=== PATIENT | male | born 1985 | race Caucasian/White ===

== ENCOUNTER 2016-04-08 09:52 | Emergency (ER) | payer OTHER ==
[~2016-04-08] VITALS: Ht 190.5 cm; Wt 115.6 kg
[~2016-04-08 09:52] MED LIST: CETI10TA10 PO
[2016-04-08 09:54] VITALS: TEMP 37.1; Ht 190.5 cm; Wt 115.6 kg
[2016-04-08 10:00] VITALS: O2SAT 98
[2016-04-08] MEDS ORDERED: ASPIRIN 324 MG CHEW PO STA (10:40)
[2016-04-08] MEDS ORDERED: NITROGLYCERIN 0.4 MG SL PER TAB CHARGE SL PRN (10:45)
--- NOTE | 2016-04-08 10:45 | EMERGENCY ROOM VISIT NOTE ---
History First contact with patient: 09:57 Chief Complaint: SHORTNESS OF BREATH Stated Complaint: CHEST PAIN/SOB Nursing Triage Summary: sob, chest heaviness on and off, pt states he occasionally has prod cough, hx allergies. Patient reports chest discomfort starting Tuesday evening, pain went away. Presents today to the ED with chest heaviness and SOB. History of Present Illness The patient is a 30 year old male who presents to the Emergency Room with complaints of chest pain and shortness of breath. The patient states that 2 nights ago he developed heaviness in his chest and felt short of breath. He states he feels as though he cannot get enough air. The patient states that it seemed a little better on Tuesday although he felt slightly lightheaded and dizzy. The patient states that he has had persistent heaviness in his chest that he states is in the center of his chest. He states that it radiated to his left shoulder last night. He rates his discomfort a 2/10. He denies any recent illness, earache, sore throat, cough or fever. He denies any abdominal pain, nausea or vomiting. He denies any extremity pain, weakness, numbness or tingling. The patient does travel distances to [employer]. He was in [place] on Tuesday. The patient does have a family history of his father having Ivmct-Qmlctuqoo-Wkkwx syndrome, an aunt with scleroderma and his mother has Ebstein anomaly. He has never had a stress test or echocardiogram. He has never seen a optical assistant. Review of Systems A 10 system review of systems was completed with positives and pertinent negatives listed in the HPI. Past Medical/Surgical History Medical Problems: (1) Calculus Of Kidney (2) Calculus Of Ureter (3) Personal History Of Urinary Calculi Social History Smoking Status: Never Smoker Drug Use: none Marital Status: Housing Status: lives with family Occupation Status: employed Current/Historical Medications Scheduled Cetirizine Hcl (Zyrtec), 10 MG PO QAM Scheduled PRN Lorazepam (Ativan), 1 TAB PO Q6H PRN for Anxiety Allergies Coded Allergies: No Known Allergies (Unverified , 04/08/16) Physical Exam Vital Signs Date Time Temp Pulse Resp B/P Pulse Ox O2 Delivery O2 Flow Rate FiO2 04/08/16 17:20 74 20 128/84 97 04/08/16 16:11 100 18 129/70 97 Room Air 04/08/16 15:05 75 18 145/87 99 Room Air 04/08/16 13:50 67 20 125/77 97 Room Air 04/08/16 12:22 65 18 138/94 98 Room Air 04/08/16 10:49 71 14 127/83 98 Room Air 04/08/16 10:48 76 04/08/16 10:04 98 Room Air 04/08/16 10:00 98 Room Air 04/08/16 09:54 37.1 94 18 146/108 98 Room Air Physical Exam VITALS: Vitals are noted on the nurse's note and reviewed by myself. Vital signs stable. The patient is afebrile. He is not tachycardic, tachypneic or hypoxic. GENERAL: This is a 30-year-old male, in no acute distress, nondiaphoretic, well- developed well-nourished. SKIN: The skin was without rashes, erythema, edema, or bruising. There is no tenting of the skin. Capillary reflex less than 2 seconds. HEAD: Normocephalic atraumatic. EARS: The external ears are normal in appearance. EYES: Pupils equal round and reactive to light and accommodation. Conjunctivae without injection, sclerae without icterus. Extraocular movements intact. NOSE: Patent, turbinates without inflammation or discharge. MOUTH: Mucous membranes moist. Tonsils are not enlarged. Pharynx without erythema or exudate. Uvula midline. Airway patent. Tongue does not deviate. NECK: Supple without nuchal rigidity. No JVD. HEART: Regular rate and rhythm without murmurs gallops or rubs. LUNGS: Clear to auscultation bilaterally without wheezes, rales or rhonchi. No retractions or accessory muscle use. ABDOMEN: Positive bowel sounds x 4. Soft, nontender, without masses or organomegaly. MUSCULOSKELETAL: No muscle atrophy, erythema, or edema noted. Full range of motion in all extremities. Normal gait. Strength 5/5 throughout. NEURO: Patient was alert and oriented to person place and time. No focal neurological deficits. Medical Decision & Procedures ER Provider Diagnostic Interpretation: [~ rep ct add3]] CHEST ONE VIEW PORTABLE CLINICAL HISTORY: Chest pain and shortness of breath. COMPARISON STUDY: Chest radiograph February 24, 2015. FINDINGS: Lung volumes are normal. There is no pneumothorax or pleural effusion. There is no consolidation or evidence of pulmonary edema. Cardiac size is normal. Mediastinal contours are normal. IMPRESSION: No acute cardiopulmonary findings. Laboratory Results 04/08/16 10:34 Red Blood Count 5.02, Mean Corpuscular Volume 84.5, Mean Corpuscular Hemoglobin 29.5, Mean Corpuscular Hemoglobin Concent 34.9, Mean Platelet Volume 9.9, Neutrophils (%) (Auto) 59.4, Lymphocytes (%) (Auto) 31.3, Monocytes (%) (Auto) 8.0, Eosinophils (%) (Auto) 0.6, Basophils (%) (Auto) 0.3, Neutrophils # (Auto) 4.32, Lymphocytes # (Auto) 2.27, Monocytes # (Auto) 0.58, Eosinophils # (Auto) 0.04, Basophils # (Auto) 0.02 04/08/16 10:34 Test 04/08/16 10:34 04/08/16 11:49 04/08/16 13:09 White Blood Count 7.26 K/uL (4.8-10.8) Red Blood Count 5.02 M/uL (4.7-6.1) Hemoglobin 14.8 g/dL (14.0-18.0) Hematocrit 42.4 % (42-52) Mean Corpuscular Volume 84.5 fL (80-100) Mean Corpuscular Hemoglobin 29.5 pg (25-34) Mean Corpuscular Hemoglobin Concent 34.9 g/dl (32-36) Platelet Count 341 K/uL (130-400) Mean Platelet Volume 9.9 fL (7.4-10.4) Neutrophils (%) (Auto) 59.4 % Lymphocytes (%) (Auto) 31.3 % Monocytes (%) (Auto) 8.0 % Eosinophils (%) (Auto) 0.6 % Basophils (%) (Auto) 0.3 % Neutrophils # (Auto) 4.32 K/uL (1.4-6.5) Lymphocytes # (Auto) 2.27 K/uL (1.2-3.4) Monocytes # (Auto) 0.58 K/uL (0.11-0.59) Eosinophils # (Auto) 0.04 K/uL (0-0.5) Basophils # (Auto) 0.02 K/uL (0-0.2) RDW Standard Deviation 38.9 fL (36.4-46.3) RDW Coefficient of Variation 12.6 % (11.5-14.5) Immature Granulocyte % (Auto) 0.4 % Immature Granulocyte # (Auto) 0.03 K/uL (0.00-0.02) Prothrombin Time 11.0 SECONDS (9.0-12.0) Prothromb Time International Ratio 1.0 (0.9-1.1) Activated Partial Thromboplast Time 24.5 SECONDS (21.0-31.0) Partial Thromboplastin Ratio 0.9 D-Dimer < 190 ug/L FEU (0-500) Anion Gap 9.0 mmol/L (3-11) Est Creatinine Clear Calc Drug Dose 132.2 ml/min Estimated GFR () 102.4 Estimated GFR (Non- 88.4 BUN/Creatinine Ratio 16.2 (10-20) Calcium Level 9.3 mg/dl (8.5-10.1) Total Bilirubin 1.0 mg/dl (0.2-1) Aspartate Amino Transf (AST/SGOT) 26 U/L (15-37) Alanine Aminotransferase (ALT/SGPT) 70 U/L (12-78) Alkaline Phosphatase 79 U/L (45-117) Creatine Kinase MB 1.2 ng/ml (0.5-3.6) Creatine Kinase MB Ratio (0-3.0) Troponin I < 0.015 ng/ml (0-0.045) Total Protein 8.0 gm/dl (6.4-8.2) Albumin 4.2 gm/dl (3.4-5.0) Globulin 3.8 gm/dl (2.5-4.0) Albumin/Globulin Ratio 1.1 (0.9-2) Thyroid Stimulating Hormone (TSH) 1.260 uIu/ml (0.300-4.500) Bedside Troponin I 0.000 ng/ml (0-0.045) Urine Color YELLOW Urine Appearance CLEAR (CLEAR) Urine pH 8.0 (4.5-7.5) Urine Specific [place] 1.016 (1.000-1.030) Urine Protein NEG (NEG) Urine Glucose (UA) NEG (NEG) Urine Ketones NEG (NEG) Urine Occult Blood NEG (NEG) Urine Nitrite NEG (NEG) Urine Bilirubin NEG (NEG) Urine Urobilinogen NEG (NEG) Urine Leukocyte Esterase NEG (NEG) Medications Administered Medications (Trade) Dose Ordered Sig/[place] Route Start Time Stop Time Status Last Admin Dose Admin Aspirin (Aspirin Chew) 324 mg NOW STAT PO 04/08/16 10:40 04/08/16 10:42 DC 04/08/16 10:48 324 MG Nitroglycerin (Nitrostat Tab) 0.4 mg PRN PRN SL 04/08/16 10:45 04/08/16 17:41 DC 04/08/16 10:49 0.4 MG Procedure The patient was monitored on a bus monitor. They maintained a normal sinus rhythm without ectopy. ECG Indication: chest pain Rate (beats per minute): 71 Rhythm: normal sinus Findings: no acute ischemic change ED Course The patient was seen and examined. Previous visits were reviewed. The patient does not have a fever or leukocytosis. He does not have any significant electrolyte abnormality. Initial and 90 minute troponins were negative. TSH was within normal limits. D-dimer was not elevated. Urinalysis was negative. Chest x-ray does not reveal any acute abnormality EKG does not reveal any acute arrhythmia or ischemia The patient was given aspirin and nitroglycerin. He had no improvement in his discomfort. I discussed the case with Dr. Sandoval. A stress echo was ordered and read as normal per Dr. Godwin. The patient has been experiencing chest pressure and difficulty breathing. It has worsened over the last several days. The patient underwent the above extensive evaluation with no significant abnormality found. This may be related to underlying anxiety. 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 The patient states he was hesitant to admit this could be anxiety but is willing to consider it at this time. He will be given a small prescription for Ativan. He should follow-up with his family doctor for further evaluation, management and possible SSRI. He should return to the emergency Department with any worsening symptoms. The case was discussed with Dr. Schroeder who agrees with the assessment and treatment plan Medical Decision DIFFERENTIAL DIAGNOSIS: Aortic dissection, myocarditis, pericarditis, cervical disc disease, costochondritis, herpes zoster, rib fracture, pleuritis, pneumonia , pulmonary embolus, tension pneumothorax, anxiety disorder, somatoform disorder , choledocholithiasis, status, esophagitis, esophageal spasm, esophageal reflux , esophageal rupture, pancreatitis, peptic ulcer disease, cardiac ischemia, ST elevation NH, acute coronary syndrome, arrhythmia, coronary artery vasospasm. vavular heart disease, coronary artery disease, among others. Impression Primary Impression: Precordial chest pain Additional Impression: Anxiety Departure Information Dispostion Home / Self-Care Condition GOOD Prescriptions Lorazepam (ATIVAN) 1 Mg Tab 1 TAB PO Q6H Y for Anxiety, #12 TAB Prov: Lanette Nelson PA-C 04/08/16 Referrals RV. Dobbins MD (PCP) Patient Instructions Chest Pain - [facility], Disorder Generalized Anxiety, [facility] Additional Instructions Ativan as prescribed as needed for anxiety. The Ativan will make you sleepy and do not drive while taking it. Contact your family doctor to schedule a follow-up appointment to discuss further evaluation and management. Return with any worsening symptoms. Problem Qualifiers
[2016-04-08 10:52] LABS: BASO % 0.3 %; BASO ABS # 0.02 K/uL (0-0.2); COMPLETE YES; EOS % 0.6 %; HEMATOCRIT 42.4 % (42-52); IG% 0.4 %; LYMPH % 31.3 %; LYMPH ABS # 2.27 K/uL (1.2-3.4); MEAN CELL VOLUME 84.5 fL (80-100); MEAN CORPUSCULAR HEMOGLOBIN 29.5 pg (25-34); MEAN CORPUSCULAR HGB CONC 34.9 g/dl (32-36); MEAN PLATELET VOLUME 9.9 fL (7.4-10.4); NEUT % 59.4 %; PLATELET COUNT 341 K/uL (130-400); RED BLOOD COUNT 5.02 M/uL (4.7-6.1); WHITE BLOOD COUNT 7.26 K/uL (4.8-10.8)
[2016-04-08 10:59] LABS: ALT/SGPT 70 U/L (12-78); AST/SGOT 26 U/L (15-37); BLOOD UREA NITROGEN 18 mg/dl (7-18); BUN/CREATININE RATIO 16.2 (10-20); CALCIUM 9.3 mg/dl (8.5-10.1); CARBON DIOXIDE 25 mmol/L (21-32); CHLORIDE 106 mmol/L (98-107); GLUCOSE 113 mg/dl (70-99); SODIUM 140 mmol/L (136-145)
[2016-04-08 11:10] LABS: ALB/GLOB RATIO 1.1 (0.9-2); ALKALINE PHOSPHATASE 79 U/L (45-117)
[2016-04-08 11:12] LABS: PARTIAL THROMBOPLASTIN RATIO 0.9
--- NOTE | 2016-04-08 11:25 | DIAGNOSTIC IMAGING REPORT ---
CHEST ONE VIEW PORTABLE CLINICAL HISTORY: Chest pain and shortness of breath. COMPARISON STUDY: Chest radiograph February 24, 2015. FINDINGS: Lung volumes are normal. There is no pneumothorax or pleural effusion. There is no consolidation or evidence of pulmonary edema. Cardiac size is normal. Mediastinal contours are normal. IMPRESSION: No acute cardiopulmonary findings. Electronically signed by: Jose R Ortiz M.D. 04/08/2016 11:23 AM Dictated Date/Time: 04/08/2016 11:22 AM
[2016-04-08 13:25] LABS: URINE APPEARANCE CLEAR (CLEAR); URINE BILIRUBIN NEG (NEG); URINE COLOR YELLOW; URINE NITRITE NEG (NEG); URINE SPECIFIC GRAVITY 1.016 (1.000-1.030); UROBILINOGEN NEG (NEG); ZZUR CULT IF INDIC CLEAN CATCH NO
[2016-04-08 14:15] LABS: MANUAL MICROSCOPIC REQUIRED? NO; REVIEW REQ? NO
[2016-04-08] MEDS ORDERED: ATV/1 PO ×2 (17:09→17:11)
[2016-04-08 17:20] VITALS: BP 128/84; PULSE 74; O2SAT 97
--- NOTE | 2016-04-08 18:06 | EXERCISE STRESS ECHO ---
*NOTICE TO RECEIVING [employer] This information is strictly Confidential and protected under [place] law. [place] law prohibits you from making any further disclosure of this information unless further disclosure is expressly permitted by the written consent of the person to whom it pertains or is authorized by law. A general authorization for the release of medical or other information is not sufficient for this purpose. Hospital accepts no responsibility if the information is made available to any other person, INCLUDING THE PATIENT. Interpretation Summary * Name: NATALY KHAN Study Date: 04/08/2016 03:03 PM BP: 149/88 mmHg * Patient Location: .ED HR: 61 * : 1985 (M/d/yyyy) Gender: Male Height: 75 in * Age: 30 yrs Ethnicity: [place] Weight: 254 lb * Ordering Physician: Lanette Nelson * Referring Physician: KATHY Dobbins. * Performed By: [facility] * * Reason For Study: CHEST PAIN * BSA: 2.4 m2 * Hypertensive at rest. * Hypertensive systolic blood pressure response to exercise. * No exercise-induced arrhythmias. * Resting echocardiogram with mild concentric left ventricular hypertrophy, normal biventricular systolic function, normal left ventricular wall motion, mild left atrial dilatation. * This was a stress echocardiogram only. No Doppler exam of the valves was performed. * This was a normal stress echocardiogram. * The stress ECG response was normal * The stress echocardiogram is negative for inducible ischemia. Procedure Details * ECHOEX, CPT #91300 Left Ventricle * The left ventricle is normal in size. * There is mild concentric left ventricular hypertrophy. * Ejection Fraction = 65-70%. * Left ventricular systolic function is normal. * The left ventricular ejection fraction increases normally with stress. The left ventricular end-systolic cavity size reduces post-stress (normal response). The left ventricular wall motion with stress is normal. * Resting wall motion: Normal. Stress wall motion: Appropriate increase in Left ventricular systolic function and decrease in cavity size. No stress induced segmental wall motion abnormalities. Right Ventricle * The right ventricle is normal in size and function. Atria * The left atrium is mildly dilated. * Right atrial size is normal. Mitral Valve * The mitral valve is normal. Tricuspid Valve * The tricuspid valve is not well visualized. Aortic Valve * The aortic valve is not well visualized. Pulmonic Valve * The pulmonic valve is not well visualized. Pericardium * There is no pericardial effusion. Stress Parameters * Normal baseline electrocardiogram. * Stress ECG: No ST changes. No arrhythmias. * Rest heart rate was '92' BPM. * Rest blood pressure was '149/88' * Maximum heart rate achieved was 179 bpm. * Maximum heart rate was 95 % of maximum age-predicted heart rate. * Maximum blood pressure was '209/60' * Total exercise time was '9:04 min' * Maximum exercise MET level achieved was '10.20' METS * Maximum treadmill speed was '4.2' miles per hour. * Maximum treadmill elevation was '16'% grade. * Exercise was stopped due to fatigue. * The patient exhibited a hypertensive response with stress. * No complaints of chest pain during or following exercise. MMode 2D Measurements and Calculations IVSd 1.2 cm IVSs 1.8 cm LVIDd 4.1 cm LVIDs 2.3 cm LVPWd 1.2 cm LVPWs 1.3 cm IVS/LVPW 1.0 FS 42.7 % EDV(Teich) 74.0 ml ESV(Teich) 19.1 ml EF(Teich) 74.2 % EDV(cubed) 68.6 ml ESV(cubed) 12.9 ml EF(cubed) 81.2 % % IVS thick 44.8 % % LVPW thick 12.9 % LV mass(C)d 172.2 grams LV mass(C)dI 70.9 grams/m\S\2 LV mass(C)s 124.9 grams LV mass(C)sI 51.4 grams/m\S\2 SV(Teich) 54.9 ml SI(Teich) 22.6 ml/m\S\2 SV(cubed) 55.7 ml SI(cubed) 22.9 ml/m\S\2 Ao root diam 3.7 cm Ao root area 10.6 cm\S\2 LA dimension 4.2 cm LA/Ao 1.1 LVOT diam 2.0 cm LVOT area 3.1 cm\S\2
== END 2016-04-08 17:24 | disposition home or self-care (01) ==
LOC: C.EDB 09:53
DX: R07.2 Precordial pain (principal); F41.9 Anxiety disorder, unspecified

== ENCOUNTER 2016-04-14 10:35 | Emergency (ER) | payer OTHER ==
[~2016-04-14] VITALS: Ht 188 cm; Wt 108.0 kg
[~2016-04-14 10:35] MED LIST changes: +ATV/1 PO
[2016-04-14 10:44] VITALS: TEMP 36.8; Ht 188 cm; Wt 108.0 kg
[2016-04-14] MEDS ORDERED: SODIUM CHLORIDE 0.9% 1000ML 500 ML IV ONE (10:57)
[2016-04-14] MEDS ORDERED: ONDANSETRON INJ 2 MG/ML 2 ML VIAL IV STA (10:57)
[2016-04-14] MEDS ORDERED: ONDANSETRON INJ 2 MG/ML 2 ML VIAL ONE (10:58)
[2016-04-14] MEDS ORDERED: MoRPHine SULFATE 10 MG/ML CARP/VIAL ONE (10:58)
[2016-04-14] MEDS ORDERED: MoRPHine SULFATE 10 MG/ML CARP/VIAL IV PRN (11:00)
[2016-04-14 11:12] LABS: HEMATOCRIT 41.5 % (42-52); MEAN CELL VOLUME 84.7 fL (80-100); MEAN CORPUSCULAR HEMOGLOBIN 29.8 pg (25-34); MEAN CORPUSCULAR HGB CONC 35.2 g/dl (32-36); PLATELET COUNT 377 K/uL (130-400); WHITE BLOOD COUNT 9.37 K/uL (4.8-10.8)
[2016-04-14] MEDS ORDERED: MoRPHine SULFATE 10 MG/ML CARP/VIAL IV STA (11:17)
[2016-04-14 11:18] LABS: BUN/CREATININE RATIO 16.1 (10-20); CALCIUM 9.7 mg/dl (8.5-10.1); CREATININE 1.2 mg/dl (0.60-1.40); POTASSIUM 4.2 mmol/L (3.5-5.1)
[2016-04-14 11:25] LABS: URINE APPEARANCE CLOUDY (CLEAR); URINE BILIRUBIN NEG (NEG); URINE COLOR DK YELLOW; URINE NITRITE NEG (NEG); UROBILINOGEN NEG (NEG); ZZUR CULT IF INDIC CLEAN CATCH NO
[2016-04-14 11:27] LABS: MANUAL MICROSCOPIC REQUIRED? NO; REVIEW REQ? NO
--- NOTE | 2016-04-14 11:47 | DIAGNOSTIC IMAGING REPORT ---
CT OF THE ABDOMEN AND PELVIS WITHOUT CONTRAST, STONE PROTOCOL CLINICAL HISTORY: Left flank pain. COMPARISON STUDY: CT of the abdomen and pelvis February 19, 2015 and KUB September 08, 2015. TECHNIQUE: Helical axial images of the abdomen and pelvis were obtained without IV or oral contrast according to renal stone protocol. FINDINGS: There is mild left hydroureteronephrosis due to a 2 mm distal left ureteral calculus. There are several punctate left renal calculi. Evaluation of the remainder of the abdomen and pelvis is suboptimal on this unenhanced exam. The liver, spleen, adrenal glands and pancreas are normal. 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 There is no right hydronephrosis. The caliber of small and large bowel is normal. No lymphadenopathy is present. Skeletal structures are unremarkable. IMPRESSION: 1. 2 mm distal left ureteral calculus which results in mild left hydroureteronephrosis. 2. Punctate left sided nephrolithiasis. Electronically signed by: Jose R Ortiz M.D. 04/14/2016 11:45 AM Dictated Date/Time: 04/14/2016 11:38 AM
[2016-04-14] MEDS ORDERED: HYDROmorphone INJ 1 MG/ML SYR IV STA (11:56)
[2016-04-14] MEDS ORDERED: KETOROLAC TROMETHAMINE 30 MG/ML VIAL IV STA (11:56)
[2016-04-14 13:11] VITALS: BP 119/68; PULSE 75; O2SAT 99
--- NOTE | 2016-04-14 15:26 | EMERGENCY ROOM VISIT NOTE ---
ED Visit Note First contact with patient: 11:03 Chief Complaint: Left flank pain. History of Present Illness: Mr. Jaramillo is a 30 year-old white male complaining of left flank pain. Historically patient reports history of multiple kidney stones and multiple lithotripsy procedures to pass his stoness. He reports an acute onset of severe left flank pain quadrant abdominal pain that started approximately 5 hours ago. Since that time the pain has been constant but gradually increasing in intensity. The pain is currently described as sharp and cramping. He rates his discomfort 10/10. The pain is radiating around the abdomen into the left lower quadrant area. He has not identified any aggravating or alleviating factors related to the pain. He reports taking 5 mg of OxyIR for pain and has not had any relief. Associated with the pain there has been nauseated but has not vomited and has been feeling hot and has been diaphoretic.. Patient denies skin eruptions, skin color changes, upper respiratory tract symptoms, shortness of breath, chest pain, diarrhea, constipation, rectal bleeding, black/tarry stools, urinary symptoms, hematuria. Review of Systems: As noted above in history of present illness. All body systems were reviewed and found to be negative as noted above. Past Medical History: As previously noted. Current Medications:OxyIR, Ativan and Zyrtec. Allergies to Medications: Patient denies. Social History: Patient is currently employed; he feels safe in his home environment; he denies tobacco use and admits to social alcohol use. Physical Examination: Vital Signs: Date Time Temp Pulse Resp B/P Pulse Ox O2 Delivery O2 Flow Rate FiO2 04/14/16 13:11 75 20 119/68 99 Room Air 04/14/16 11:53 70 22 151/80 100 Room Air 04/14/16 11:15 82 04/14/16 10:44 36.8 100 20 162/99 97 GENERAL: 30-year-old male in moderate to severe distress due to pain, nontoxic- appearing, afebrile and hemodynamically stable. NEUROLOGICAL: Awake, alert and oriented to person, place and time. Answering questions appropriately and following commands. Normal gait. Good hand eye coordination. SKIN: Warm, moist and pink. No soft tissue eruptions or trauma noted. HEENT: Atraumatic and normocephalic. PERRLA. Sclera white and conjunctiva pink. Oral cavity moist and pink. Pharynx is nonerythematous or edematous. Speech normal. No lymphadenopathy. Trachea midline. No jugular venous distention. BACK: No tenderness over the bony spine. No CVA tenderness. THORAX: Lungs sounds are clear to auscultation and equal bilaterally with symmetrical chest wall. No wheezing, rales or rhonchi. No crepitus, tenderness , subcutaneous air or deformities noted. HEART: Regular rate and rhythm. No gallops, rubs or murmurs are appreciated. ABDOMEN: Flat, soft and nontender. Positive bowel sounds in all quadrants. No guarding, rigidity or organomegaly. EXTREMITIES: Moves all extremities well on command and with purpose. All distal neurovascular statuses are intact and equal bilaterally. ED Course: Patient is assessed as noted above. Laboratory Testing: Test 04/14/16 00:00 04/14/16 10:45 Range/Units Urine Color DK YELLOW Urine Appearance CLOUDY CLEAR Urine pH 6.0 4.5-7.5 Urine Specific [place] 1.030 1.000-1.030 Urine Protein TRACE NEG Urine Glucose (UA) NEG NEG Urine Ketones TRACE NEG Urine Occult Blood 3+ NEG Urine Nitrite NEG NEG Urine Bilirubin NEG NEG Urine Urobilinogen NEG NEG Urine Leukocyte Esterase SMALL NEG Urine WBC (Auto) 1-5 0-5 /hpf Urine RBC (Auto) >30 0-4 /hpf Urine Hyaline Casts (Auto) 5-10 0-5 /lpf Urine Epithelial Cells (Auto) 10-20 0-5 /lpf Urine Bacteria (Auto) NEG NEG White Blood Count 9.37 4.8-10.8 K/uL Red Blood Count 4.90 4.7-6.1 M/uL Hemoglobin 14.6 14.0-18.0 g/dL Hematocrit 41.5 42-52 % Mean Corpuscular Volume 84.7 80-100 fL Mean Corpuscular Hemoglobin 29.8 25-34 pg Mean Corpuscular Hemoglobin Concent 35.2 32-36 g/dl RDW Standard Deviation 39.2 36.4-46.3 fL RDW Coefficient of Variation 12.7 11.5-14.5 % Platelet Count 377 130-400 K/uL Mean Platelet Volume 10.0 7.4-10.4 fL Sodium Level 142 136-145 mmol/L Potassium Level 4.2 3.5-5.1 mmol/L Chloride Level 109 98-107 mmol/L Carbon Dioxide Level 23 21-32 mmol/L Anion Gap 10.0 3-11 mmol/L Blood Urea Nitrogen 19 7-18 mg/dl Creatinine 1.20 0.60-1.40 mg/dl Est Creatinine Clear Calc Drug Dose 115.7 ml/min Estimated GFR () 92.2 Estimated GFR (Non- 79.5 BUN/Creatinine Ratio 16.1 10-20 Random Glucose 126 70-99 mg/dl Calcium Level 9.7 8.5-10.1 mg/dl Lipase 140 73-393 U/L Noncontrast Abdominal/Pelvic CT: Was read by myself and the radiologist showing left hydroureteronephrosis with a 2 mm distal left ureteral calculus. Radiologist also notes several small punctate left uterine calculi. Rest of the CT was unremarkable. Patient was hydrated with normal saline and he received a total of 12 mg of morphine IV, 1 mg of the Dilaudid IV and 30 mg of Toradol IV for pain. Additionally he received 4 mg of Zofran IV for nausea. Patient was reassessed multiple times during his stay in the emergency department. Patient's case was reviewed with Dr. Long; we agreed on diagnostic approach, treatment, disposition and plan. Patient was educated about today's findings and instructed on his treatment plan ; he verbalizes understanding and agreement with this plan. Clinical Impression: Left uterine calculus. Decision-Making: Initially my differential diagnosis I considered uterine calculus, pyelonephritis, splenomegaly, constipation, diverticulitis, muscle spasm/sprain and other causes. Disposition: Patient discharged home in stable conditionaccompanied by family members; prior to departure he was reassessed and subjectively reported he was pain-free. Plan: Patient was encouraged to use his OxyIR every 6 hours as needed for pain and to alternate his OxyIR with ibuprofen every 3 hours. Patient was encouraged to stay well-hydrated. Patient was encouraged to follow-up with his urologist for specialty care and treatment Patient was encouraged return the ED for worsening symptoms, fevers, urinary burning/frequency or any new/concerning symptoms.
[2016-04-15] MEDS ORDERED: OXYC1TAB3 PO (11:14)
== END 2016-04-14 13:12 | disposition home or self-care (01) ==
LOC: C.EDB 10:37 → C.EDC 13:12
DX: N20.1 Calculus of ureter (principal); Z79.899 Other long term (current) drug therapy; N13.30 Unspecified hydronephrosis

== ENCOUNTER 2016-04-15 07:29 | Emergency (ER) | payer OTHER ==
[~2016-04-15] VITALS: Ht 188 cm; Wt 113.1 kg
[2016-04-15 07:36] VITALS: Ht 188 cm; Wt 113.1 kg
[2016-04-15] MEDS ORDERED: SODIUM CHLORIDE 0.9% 1000ML 1,000 ML IV STA (07:36)
[2016-04-15] MEDS ORDERED: SODIUM CHLORIDE 0.9% 1000ML 2,000 ML IV STA (07:51)
[2016-04-15] MEDS ORDERED: KETOROLAC TROMETHAMINE 30 MG/ML VIAL IV STA (07:58)
[2016-04-15] MEDS ORDERED: ONDANSETRON INJ 2 MG/ML 2 ML VIAL IV STA (07:58)
[2016-04-15] MEDS ORDERED: HYDROmorphone INJ 1 MG/ML SYR IV STA ×3 (07:58→09:58)
[2016-04-15 07:59] LABS: BASO % 0.2 %; BASO ABS # 0.02 K/uL (0-0.2); COMPLETE YES; EOS % 1.4 %; HEMATOCRIT 40.6 % (42-52); IG% 0.3 %; LYMPH % 28.6 %; MEAN CELL VOLUME 85.5 fL (80-100); MEAN CORPUSCULAR HEMOGLOBIN 29.1 pg (25-34); MEAN PLATELET VOLUME 9.8 fL (7.4-10.4); MONO % 9.2 %; NEUT % 60.3 %; PLATELET COUNT 349 K/uL (130-400); RED BLOOD COUNT 4.75 M/uL (4.7-6.1); WHITE BLOOD COUNT 8.74 K/uL (4.8-10.8)
[2016-04-15 08:21] LABS: ALB/GLOB RATIO 1.1 (0.9-2); BUN/CREATININE RATIO 11.7 (10-20); CALCIUM 9.3 mg/dl (8.5-10.1); CREATININE 1.2 mg/dl (0.60-1.40)
--- NOTE | 2016-04-15 08:24 | DIAGNOSTIC IMAGING REPORT ---
[facility] CLINICAL HISTORY: PERSISTENT L FLANK PAIN COMPARISON STUDY: 09/08/2015, CT scan dated 04/14/2016 FINDINGS: There is no pathologic bowel dilatation. No renal calculi are visualized. The distal left ureteral calculus described on the recent CT scan is not visualized with certainty on conventional radiographic evaluation. There is a faint linear calcification within the left pelvic basin, this is nonspecific. IMPRESSION: 1. No evidence of pathologic bowel dilatation 2. No renal calculi identified 3. The recently described distal left ureteral calculus is not visualized with certainty. Electronically signed by: Oscar Cherry M.D. 04/15/2016 8:22 AM Dictated Date/Time: 04/15/2016 8:20 AM
[2016-04-15 08:25] LABS: POTASSIUM 4.2 mmol/L (3.5-5.1)
[2016-04-15 09:38] LABS: URINE APPEARANCE CLEAR (CLEAR); URINE BILIRUBIN NEG (NEG); URINE COLOR YELLOW; URINE EPITHELIAL CELL AUTO 0-5 /lpf (0-5); URINE NITRITE NEG (NEG); URINE SPECIFIC GRAVITY 1.021 (1.000-1.030); UROBILINOGEN NEG (NEG)
[2016-04-15 09:40] LABS: MANUAL MICROSCOPIC REQUIRED? NO; REVIEW REQ? NO
[2016-04-15 09:46] VITALS: TEMP 36.7
[2016-04-15] MEDS ORDERED: OXYC1TAB3 PO (11:14)
[2016-04-15 11:30] VITALS: BP 157/87; PULSE 82; O2SAT 97
--- NOTE | 2016-04-15 17:05 | EMERGENCY ROOM VISIT NOTE ---
History First contact with patient: 07:36 Chief Complaint: KIDNEY STONE Stated Complaint: KIDNEY STONES History of Present Illness The patient is a 30 year old male who presents to the Emergency Room with complaints of persistent left flank pain. The patient was here yesterday with a CT showing a 2 mm distal left ureteral calculus, resulting in mild left hydroureteronephrosis. The patient reports that he was pain-free at discharge yesterday, but started to develop pain again last night. He reports mild nausea without vomiting. The patient has an extensive history of kidney stones , having undergone multiple lithotripsies and stenting. He denies any fevers or chills. He has been urinating without any complications. He rates his discomfort a 7 out of 10. Review of Systems HEENT: Denies dizziness, visual problems, hearing loss, tinnitus. Denies difficulty swallowing or oral lesions. PULMONARY: Denies cough, shortness of breath, sputum production or hemoptysis. CARDIOVASCULAR: Denies chest pain, palpitations, dyspnea on exertion, orthopnea or peripheral edema. GASTROINTESTINAL: Denies diarrhea or constipation. Reports mild nausea without vomiting. GENITOURINARY: Denies dysuria, frequency, urgency or nocturia. Otherwise see history of present illness. NEUROLOGIC: Denies history of epilepsy, CVA, TIA or chronic headaches. MUSCULOSKELETAL: Denies history of joint tenderness/swelling. SKIN: Denies rashes or lesions. PSYCHIATRIC: Denies history of depression or mental illness. ENDOCRINE: Denies history of diabetes or thyroid disorders. Past Medical/Surgical History Medical Problems: (1) Calculus Of Kidney (2) Calculus Of Ureter (3) Personal History Of Urinary Calculi Family History Unremarkable Social History Smoking Status: Never Smoker Alcohol Use: occasionally Drug Use: none Marital Status: Housing Status: lives with family Occupation Status: employed Current/Historical Medications Scheduled Cetirizine Hcl (Zyrtec), 10 MG PO QAM Scheduled PRN Lorazepam (Ativan), 1 TAB PO Q6H PRN for Anxiety Oxycodone Ir (Roxicodone Ir), 1-2 TAB PO Q4H PRN for Pain Allergies Coded Allergies: No Known Allergies (Unverified , 04/14/16) Physical Exam Vital Signs Date Time Temp Pulse Resp B/P Pulse Ox O2 Delivery O2 Flow Rate FiO2 04/15/16 11:30 82 16 157/87 97 04/15/16 10:35 87 18 142/92 96 Room Air 04/15/16 09:46 36.7 78 17 155/84 96 Room Air 04/15/16 08:40 79 16 170/103 99 Room Air 04/15/16 07:36 37.3 70 18 173/87 98 Room Air Physical Exam CONSTITUTIONAL: Healthy and well nourished. Alert and oriented X 3 with positive affect. Patient appears in moderate discomfort from pain and nausea. HEENT: Normocephalic, atraumatic. Pupils equal, round and reactive. No scleral icterus or conjunctival pallor. NECK: Full active range of motion without discomfort. RESPIRATORY: Clear to auscultation bilaterally with no wheezing, crackles, rhonchi or stridor. CARDIOVASCULAR: Regular rate and rhythm with no murmurs, rubs or gallops. GASTROINTESTINAL: Bowel sounds present in all quadrants. Abdomen is soft and nontender to palpation. Negative CVA tenderness. MUSCULOSKELETAL: Full range of motion of all joints without discomfort. INTEGUMENTARY: No rash or other significant dermatologic conditions noted. NEUROLOGIC: No focal neurologic deficits noted. Medical Decision & Procedures ER Provider Diagnostic Interpretation: My interpretation of a KUB x-ray does not show any obvious distal left ureteral stone. No additional renal calculi are appreciated. Radiologist report is as follows: KUB CLINICAL HISTORY: PERSISTENT L FLANK PAIN COMPARISON STUDY: 09/08/2015, CT scan dated 04/14/2016 FINDINGS: There is no pathologic bowel dilatation. No renal calculi are visualized. The distal left ureteral calculus described on the recent CT scan is not visualized with certainty on conventional radiographic evaluation. There is a faint linear calcification within the left pelvic basin, this is nonspecific. IMPRESSION: 1. No evidence of pathologic bowel dilatation 2. No renal calculi identified 3. The recently described distal left ureteral calculus is not visualized with certainty. Laboratory Results 04/15/16 07:50 Red Blood Count 4.75, Mean Corpuscular Volume 85.5, Mean Corpuscular Hemoglobin 29.1, Mean Corpuscular Hemoglobin Concent 34.0, Mean Platelet Volume 9.8, Neutrophils (%) (Auto) 60.3, Lymphocytes (%) (Auto) 28.6, Monocytes (%) (Auto) 9.2, Eosinophils (%) (Auto) 1.4, Basophils (%) (Auto) 0.2, Neutrophils # (Auto) 5.27, Lymphocytes # (Auto) 2.50, Monocytes # (Auto) 0.80, Eosinophils # (Auto) 0.12, Basophils # (Auto) 0.02 04/15/16 07:50 Test 04/15/16 07:50 04/15/16 09:25 White Blood Count 8.74 K/uL (4.8-10.8) Red Blood Count 4.75 M/uL (4.7-6.1) Hemoglobin 13.8 g/dL (14.0-18.0) Hematocrit 40.6 % (42-52) Mean Corpuscular Volume 85.5 fL (80-100) Mean Corpuscular Hemoglobin 29.1 pg (25-34) Mean Corpuscular Hemoglobin Concent 34.0 g/dl (32-36) Platelet Count 349 K/uL (130-400) Mean Platelet Volume 9.8 fL (7.4-10.4) Neutrophils (%) (Auto) 60.3 % Lymphocytes (%) (Auto) 28.6 % Monocytes (%) (Auto) 9.2 % Eosinophils (%) (Auto) 1.4 % Basophils (%) (Auto) 0.2 % Neutrophils # (Auto) 5.27 K/uL (1.4-6.5) Lymphocytes # (Auto) 2.50 K/uL (1.2-3.4) Monocytes # (Auto) 0.80 K/uL (0.11-0.59) Eosinophils # (Auto) 0.12 K/uL (0-0.5) Basophils # (Auto) 0.02 K/uL (0-0.2) RDW Standard Deviation 40.2 fL (36.4-46.3) RDW Coefficient of Variation 12.7 % (11.5-14.5) Immature Granulocyte % (Auto) 0.3 % Immature Granulocyte # (Auto) 0.03 K/uL (0.00-0.02) Anion Gap 13.0 mmol/L (3-11) Est Creatinine Clear Calc Drug Dose 118.2 ml/min Estimated GFR () 92.2 Estimated GFR (Non- 79.5 BUN/Creatinine Ratio 11.7 (10-20) Calcium Level 9.3 mg/dl (8.5-10.1) Total Bilirubin 1.0 mg/dl (0.2-1) Aspartate Amino Transf (AST/SGOT) 26 U/L (15-37) Alanine Aminotransferase (ALT/SGPT) 59 U/L (12-78) Alkaline Phosphatase 71 U/L (45-117) Total Protein 7.4 gm/dl (6.4-8.2) Albumin 3.8 gm/dl (3.4-5.0) Globulin 3.6 gm/dl (2.5-4.0) Albumin/Globulin Ratio 1.1 (0.9-2) Urine Color YELLOW Urine Appearance CLEAR (CLEAR) Urine pH 6.0 (4.5-7.5) Urine Specific [place] 1.021 (1.000-1.030) Urine Protein NEG (NEG) Urine Glucose (UA) NEG (NEG) Urine Ketones NEG (NEG) Urine Occult Blood 3+ (NEG) Urine Nitrite NEG (NEG) Urine Bilirubin NEG (NEG) Urine Urobilinogen NEG (NEG) Urine Leukocyte Esterase NEG (NEG) Urine WBC (Auto) 1-5 /hpf (0-5) Urine RBC (Auto) 10-30 /hpf (0-4) Urine Hyaline Casts (Auto) 1-5 /lpf (0-5) Urine Epithelial Cells (Auto) 0-5 /lpf (0-5) Urine Bacteria (Auto) NEG (NEG) The above labs were reviewed. BUN and creatinine are normal. The patient has no leukocytosis. LFTs are also normal. Medications Administered Medications (Trade) Dose Ordered Sig/[place] Route Start Time Stop Time Status Last Admin Dose Admin Sodium Chloride 1,000 ml @ 999 mls/hr Q1H1M STAT IV 04/15/16 07:36 04/15/16 07:52 DC 04/15/16 07:49 999 MLS/HR Sodium Chloride (Nss 1000ml) 2,000 ml @ 999 mls/hr Q2H1M STAT IV 04/15/16 07:51 04/15/16 09:51 DC 04/15/16 08:06 999 MLS/HR Hydromorphone HCl (Dilaudid Inj) 1 mg NOW STAT IV 04/15/16 07:58 04/15/16 08:00 DC 04/15/16 08:05 1 MG Ketorolac Tromethamine (Toradol Inj) 30 mg NOW STAT IV 04/15/16 07:58 04/15/16 08:00 DC 04/15/16 08:04 30 MG Ondansetron HCl (Zofran Inj) 4 mg NOW STAT IV 04/15/16 07:58 04/15/16 08:00 DC 04/15/16 08:03 4 MG Hydromorphone HCl (Dilaudid Inj) 1 mg NOW STAT IV 04/15/16 08:36 04/15/16 08:37 DC 04/15/16 08:40 1 MG Hydromorphone HCl (Dilaudid Inj) 1 mg NOW STAT IV 04/15/16 09:58 04/15/16 10:00 DC 04/15/16 10:03 1 MG Procedure 1. IV hydration: The patient received a 2 L normal saline bolus 2. IV medications: The patient initially was administered Dilaudid 1 mg, Toradol 30 mg and Zofran 4 mg IVP. He was provided 2 additional doses of Dilaudid 1 mg IVP for pain control. ED Course Patient history and physical exam were performed. Nurse's notes were reviewed. Vital signs were reviewed and were normal. I also reviewed documentation from the patient's visit in our department yesterday. Laboratory studies were normal, including urinalysis. IV access was established, and labs were drawn. The patient was hydrated with 2 L of normal saline, and administered IV medications as discussed in the previous Procedure section. Review of labs shows no acute findings. Creatinine is normal. A KUB x-ray is not show any obvious visible distal left ureteral calculus or other renal calculi. It is noted that the patient required 3 separate doses of Dilaudid for pain control, and rated his discomfort a 4 out of 10. The patient is concerned that his pain is just going to come back. The patient admits that he has only taken one oxycodone at home for the pain. I did speak with Dr. Darrell Bright, urologist with his group, who reported that he would not perform any interventional procedures at this point. He reports that if the patient is unable to tolerate the pain, he could be observed in the hospital with urology consultation. He also reported that they could hopefully get him into the office tomorrow, before the weekend, for further reevaluation. I did discuss this further with the patient, and he does not feel that he would benefit from observation status at this time, and requested discharge home. The patient is wondering if his home analgesics, which he has had from the past, may not be as effective because they are likely out of date by several months. The patient was provided a prescription for OxyIR 5 mg, taking 2 every [address] Bright also suggested that he continue with Flomax, which the patient reports that he also has at home. The patient will contact Dr. Bright's office tomorrow for follow-up. The patient was instructed to return to the emergency Department for uncontrollable pain, vomiting or developing fever. The patient was happy with plan of care, and voiced understanding of all discharge instructions. Medical Decision Patient presents to the emergency department with complaint of recurrent pain secondary to a left ureteral calculus, measuring [address] scan yesterday. The position was left distal ureter. The calculus cannot be seen on KUB x-rays today, but the patient still has persistent renal colic. He currently does not have any evidence for UTI, and remaining labs are normal. I do feel that trial by passage is still warranted, and will return to the emergency Department for uncontrollable pain. His urologist does not feel that intervention is warranted at this time. The case was also discussed with Dr. Woodruff, attending physician, who agrees with workup and plan of care. Impression Primary Impression: Ureteral colic Departure Information Prescriptions Oxycodone Ir (Roxicodone Ir) 5 Mg Tab 1-2 TAB PO Q4H Y for Pain, #24 TAB For Initial Treatment Prov: Beto Rojas PA 04/15/16 Referrals RV. Dobbins MD (PCP) Patient Instructions [facility]
== END 2016-04-15 11:30 | disposition home or self-care (01) ==
LOC: C.EDB 07:30 → C.EDA 11:30
DX: N20.2 Calculus of kidney with calculus of ureter (principal); Z87.442 Personal history of urinary calculi

== ENCOUNTER → 2016-04-22 | Outpatient (CLI) | payer OTHER ==
[~2016-04-22] MED LIST changes: -ATV/1 PO; +OXYC1TAB3 PO
[2016-04-22 12:26] LABS: LYME DISEASE AB IGG NEG (NEG)
[2016-04-22 12:27] LABS: LYME DISEASE AB IGM NEG (NEG)
== END | disposition home or self-care (01) ==
LOC: C.LAB1850 08:24
PROVIDERS: ATTEND Internal Medicine
DX: R25.1 Tremor, unspecified (principal)

== ENCOUNTER → 2016-04-26 | Outpatient (CLI) | payer OTHER ==
--- NOTE | 2016-04-26 10:57 | DIAGNOSTIC IMAGING REPORT ---
KUB HISTORY: NEPHROLITHIASIS COMPARISON: KUB 04/15/2016. FINDINGS: The bowel gas pattern is unremarkable. There are no dilated loops of small bowel to suggest an obstruction. No renal calculi. No ureteral calculi. Calcifications in the deep pelvis likely represent phleboliths. These remain unchanged. No pneumoperitoneum or pneumatosis. IMPRESSION: No renal or ureteral stones identified by this modality. Electronically signed by: Eladio Ibarra M.D. 04/26/2016 10:55 AM Dictated Date/Time: 04/26/2016 10:54 AM
== END | disposition home or self-care (01) ==
LOC: C.RAD 10:21
PROVIDERS: ATTEND Nurse Practitioner Family
DX: N20.0 Calculus of kidney (principal)

== ENCOUNTER → 2016-10-18 | Outpatient (CLI) | payer OTHER ==
[~2016-10-18] MED LIST changes: -OXYC1TAB3 PO
--- NOTE | 2016-10-18 09:21 | DIAGNOSTIC IMAGING REPORT ---
KUB HISTORY: 31 years-old Male NEPHROLITHIASIS COMPARISON: KUB radiograph 04/26/2016 TECHNIQUE: KUB radiograph FINDINGS: No urolithiasis identified. Likely vascular calcifications are again seen within the left hemipelvis. The bowel gas pattern is nonobstructive. No fracture is identified. Imaged lung bases are unremarkable. IMPRESSION: No urolithiasis identified. The above report was generated using voice recognition software. It may contain grammatical, syntax or spelling errors. Electronically signed by: Ravi Smith M.D. 10/18/2016 9:19 AM Dictated Date/Time: 10/18/2016 9:18 AM
== END | disposition home or self-care (01) ==
LOC: C.RAD 08:48
PROVIDERS: ATTEND Nurse Practitioner Family
DX: N20.0 Calculus of kidney (principal)